=== PATIENT | male | born 1930 | race Caucasian/White ===

== ENCOUNTER → 2017-04-14 | Outpatient (CLI) | payer MEDICARE, BC ==
[~2017-04-14] MED LIST: APRESOLINE50 MG PO; ARICEPT10 M1 PO; B-COMPLEX PLUS1 EACH PO; CELEXA40 MG PO; CLOPIDOGREL75 MG PO; FISH OIL 1,0001 EACH PO; FLOMAX0.4 MG PO; FLONASE 50 MCG/16 GM NOSE; GLUCOTROL10 MG PO; HYTRIN UD5 MG PO; KLOR-CON 1010 MEQ PO; LIPITOR80 MG PO; LOPRESSOR50 MG PO; NITROGLYCERIN0.4 M1 TRANS; NOVOLOG FL100 UNIT/1 SUB-Q; PLAVIX75 MG PO; PRAVACHOL20 MG PO; PRESERVISION A1 EAC2 PO; PROSCAR5 MG PO; PROTONIX40 MG PO; PROVENTIL OR V6.7 GM INH; SPIRIVA HA30 CAP/INH INH; SYMBICORT 16010.2 GM INH; VITAMIN D-32000 UNI1 PO; ZYCLARA1 EACH TOP
== END | disposition disaster alternative care site (69) ==
LOC: GRAD 15:30
DX: N28.9 Disorder of kidney and ureter, unspecified (principal); N28.1 Cyst of kidney, acquired; N26.1 Atrophy of kidney (terminal)

== ENCOUNTER 2017-05-04 16:00 | Inpatient (IN) | payer MEDICARE, BC ==
[~2017-05-04] VITALS: Ht 172.7 cm; Wt 87.5 kg
--- NOTE | ~2017-05-04 | HP ---
PATIENT'S NAME: STEVIE PONCE [facility] AGE: 86 Y [address] ROOM: [address] [address] LOCATION: GPCU ADMIT DATE: 05/04/2017 History & Physical DISCHARGE DATE: FAMILY PHYSICIAN: PHYSICIAN, UNKNOWN ATTENDING PHYSICIAN: Fredrick Diaz DATE OF SERVICE: CHIEF COMPLAINT: Syncope. HISTORY OF PRESENTING ILLNESS: This 86-year-old white male with prior history of bladder cancer and multiple skin cancers as well as a previous history of stroke in the distant past. He was transferred to [facility] from [place] after a syncopal episode which occurred this morning. Apparently he had gotten up per his usual morning routine. He took his medications and ate breakfast. He rode with his to get coffee and when he tried to stand from the car, he got dizzy and collapsed. He did not actually fall and had his assisted him to the ground. He believes that he was unconscious for as much as 20 minutes. He "came to" en route to the hospital and relates that he felt a little groggy and confused for a short period of time. After his arrival in the hospital, he was feeling "okay." He was admitted for monitoring there and cardiac enzymes were trended. He had a bump in his troponin to 0.5. Dr. Diaz, Cardiology was consulted and it was requested that he be transferred here for definitive evaluation and management. He denies chest pain. He was significantly hypertensive at the point of his hospitalization there and received IV nitroglycerin for that. He does complain of some shortness of breath which has persisted. He denies fevers, chills, or sweats. No congestion or cough. Denies significant orthopnea. He has been eating and drinking normally as of late. He denies any difficulties with chewing or swallowing. No abdominal pain. No nausea. He has been stooling and voiding per his usual. He denies numbness, tingling, or weakness in the extremities but did have some dysesthesias over the right neck. PAST MEDICAL HISTORY: ALLERGIES: HYDROCODONE, NAPROXEN, AND ZOFRAN. ILLNESSES: 1. Bladder cancer status post TURBT. PATIENT'S NAME: STEVIE PONCE [facility] AGE: 86 Y [address] ROOM: [address] [place], [place] [address] LOCATION: [facility] ADMIT DATE: 05/04/2017 History & Physical DISCHARGE DATE: FAMILY PHYSICIAN: PHYSICIAN, UNKNOWN ATTENDING PHYSICIAN: Fredrick Diaz 2. Diabetes mellitus, type 2. 3. Essential hypertension. 4. Multiple skin cancers status post excisions. 5. BPH. 6. COPD. 7. Chronic diastolic congestive heart failure. 8. Chronic kidney disease, stage 3. 9. Osteoarthritis, generalized. CURRENT MEDICATIONS: 1. Citalopram 40 mg p.o. q. day. 2. Plavix 75 mg p.o. q. day. 3. Aricept 10 mg p.o. q. day. 4. Finasteride 5 mg p.o. q. day. 5. Fish oil 2000 mg p.o. t.i.d. 6. Flonase nasal spray 2 sprays each nostril daily. 7. Glipizide 20 mg p.o. b.i.d. 8. Hydralazine 50 mg p.o. t.i.d. 9. Imiquimod cream 5% applied topically daily. 10. Metoprolol 50 mg p.o. q. day. 11. Protonix 40 mg p.o. q. day. 12. NovoLog insulin 3 units subcutaneous b.i.d. with breakfast and lunch. 13. Potassium 10 mEq p.o. q. day. 14. Pravastatin 20 mg p.o. q. day. 15. PreserVision AREDS daily. 16. Proventil HFA 2 puffs p.o. q.i.d. p.r.n. 17. Spiriva 1 puff daily. 18. Symbicort 80/4.5, 1 puff b.i.d. 19. Flomax 0.4 mg p.o. q. day. 20. Terazosin 5 mg p.o. q. day. 21. Torsemide 20 mg p.o. q. day. 22. Vitamin D3, 2000 units p.o. q. day. FAMILY HISTORY: Significant for coronary artery disease in his father. Father also had diabetes. Mother had diabetes mellitus. He has a sister with colon cancer and a brother with throat cancer. SOCIAL HISTORY: He has a 90 pack-year history of smoking, but has been quit for more than 10 years. There is history of occasional alcohol use. REVIEW OF SYSTEMS: As per HPI. All other organ systems reviewed and are negative. PATIENT'S NAME: STEVIE PONCE [facility] AGE: 86 Y [address] ROOM: [address] [place], [place] [address] LOC[facility]: [facility] ADMIT DATE: 05/04/2017 History & Physical DISCHARGE DATE: FAMILY PHYSICIAN: PHYSICIAN, UNKNOWN ATTENDING PHYSICIAN: Fredrick Diaz PHYSICAL EXAMINATION: VITAL SIGNS: Temperature 97.3, pulse 96, respirations 20, blood pressure 169/90, and O2 saturation 91% on 2 L per nasal cannula. GENERAL: He is frail, anxious, but not ill-appearing, lying in the bed, in no acute distress. He is oriented x2 only. SKIN: Supple, pink, warm, and dry. There are some scars over the face consistent with his prior skin cancer excisions. No active lesions. HEENT: Otherwise, normocephalic. Sclerae nonicteric. Pupils equal and round, slow to react to light. Extraocular movements appear intact. Nasal turbinates normal in appearance. Oropharynx clear. Mucous membranes are pink and slightly dry. NECK: Supple. No masses. No thyromegaly. No JVD. No carotid bruits are heard. CHEST: Wall is symmetrical. Heart is regular with occasional extrasystoles. There is a grade 1/6 to 2/6 systolic ejection murmur. LUNGS: Diminished at the bases. No crackles or wheezes are heard. ABDOMEN: Soft, protuberant, nontender. Bowel sounds present. No mass or hepatosplenomegaly. GENITOURINARY: Not done. RECTAL: Not done. EXTREMITIES: Display trace pitting edema. No cyanosis. NEUROLOGIC: Mentation is little slowed. He is hard of hearing, but there are no focal deficits. Cranial nerves 2 through 12 appear grossly intact. Sensation appears normal. Strength is 4 to 5/5 bilaterally in upper and lower extremities. DTRs are 0 to 1+, roughly symmetrical. Gait is not observed. LABORATORY DATA AND IMAGING STUDIES: Laboratory and x-ray data from [place]: An EKG which is not present in the transfer packet reportedly shows a "bundle branch block." This is unchanged from previous. CBC showed a white blood cell count of 4.9, hemoglobin of 10.5, hematocrit of 34.6, and platelets are 151,000. Chemistries revealed BUN and creatinine of 34 and 2.6 respectively. Sodium and potassium of 141 and 3.9; chloride and CO2 of 103 and 26; calcium was 9.1; AST and ALT of 12 and 8 respectively. Bilirubin 0.6. Cardiac enzymes initially showed a CPK of 15, myoglobin 114, and troponin was 0.04. Second set drawn at 3 hours revealed CPK elevated at 148, myoglobin greater than 1200, and troponin I of 0.52. Chest x-ray showed vascular prominence with cardiac enlargement, but no pulmonary edema. ASSESSMENT AND PLAN: 1. Syncope. We will admit to inpatient care. Differential diagnosis includes cardiogenic cause versus cerebrovascular accident. He is currently hemodynamically stable. We will admit per the acute coronary syndrome pathway and trend his cardiac enzymes. We will follow up EKG now and await evaluation by Cardiology. Dr. Diaz is already aware of PATIENT'S NAME: STEVIE PONCE [facility] AGE: 86 Y [address] ROOM: [place] [address] [facility]: [facility] ADMIT DATE: 05/04/2017 History & Physical DISCHARGE DATE: FAMILY PHYSICIAN: PHYSICIAN, UNKNOWN ATTENDING PHYSICIAN: Fredrick Diaz the patient's arrival here and he is concurrently assessing him. 2. Acute hypoxic respiratory failure with history of chronic obstructive pulmonary disease. We will check echocardiogram. He appears to be relatively well volume compensated. 3. Accelerated hypertension. He is on nitroglycerin drip. Titrate to keep systolic blood pressures less than 160. 4. Diabetes mellitus, type 2. Historically controlled. We will manage with Accu-Cheks and sliding scale insulin while he is inpatient. 5. Chronic kidney disease, stage 3. It is unclear what his baseline creatinine is. We will manage his fluid volume balance carefully. We will monitor the creatinine trend. 6. Bladder cancer status post transurethral resection of bladder tumor, also stable. No evidence for active disease. Plan to continue clinical follow up. 7. Basal cell carcinoma of the face, multiple status post excisions as above. There is no evidence for active disease. He did have a previous lung wedge excision which was a benign granuloma. 8. Cerebrovascular accident by history with minimal residual effect. We will get CT scan of the head without contrast to further delineate. 9. Deep venous thrombosis prophylaxis. We will follow the venous thromboembolism protocol. MD IRVIN SMITH/chapincito /[id number] D: [id number] T: [id number] HISTORY & PHYSICAL
--- NOTE | ~2017-05-04 | CON ---
PATIENT'S NAME: STEVIE PONCE [facility] AGE: 86 Y [address] ROOM: [address] [place], [place] [address] LOCATION: GPCU ADMIT DATE: 05/05/2017 Consultation DISCHARGE DATE: FAMILY PHYSICIAN: Toni White MD ATTENDING PHYSICIAN: Fredrick Diaz DATE OF CONSULTATION: 05/05/2017 REFERRING PHYSICIAN: SAPPHIRE LOTT REQUESTING PHYSICIAN: Alyssa Arias M.D. REASON FOR CONSULTATION: Syncope/coronary artery disease. HISTORY OF PRESENT ILLNESS: The patient is an 86-year-old, white male from [place], [place], a patient of Dr. Diaz, who was transferred yesterday due to a syncopal episode that occurred in his home. This episode was associated with nausea and vomiting. The patient has had multiple occurrences of syncopal/near syncopal episodes over the last 2-3 months. Not all of these episodes resulted in a fall. The patient denies chest pain with any of the episodes. He does have some right- sided tingling to the side of his face, which has been occurring more frequently. He was ruled a non-STEMI based on his EKG and enzymes. He is placed on the ACS protocol. Dr. Arias took the patient to the cardiac catheterization lab where he was found to have severe proximal LAD occlusion of 90%, followed by 70% first diagonal, a proximal RCA occlusion of 99%, and an ostial 90% ramus intermedius. Given this, the patient was referred to Cardiothoracic surgery for discussion of surgical revascularization. PAST MEDICAL HISTORY: Illnesses: TIA, hypertension, dyslipidemia, diabetes mellitus type 2, hypoxia with home oxygen use, osteoarthritis, skin cancer, bladder cancer, GERD, dementia, history of CVA, COPD, diastolic congestive heart failure, chronic kidney disease stage 4, BPH, anxiety, and depression. Surgery/procedures: Inguinal hernia repair, bilateral cataract, a TURBT, a partial left lobectomy, excision of skin cancer to face and lips, multiple. ALLERGIES: HYDROCODONE, NAPROSYN, ZOFRAN, HOWEVER, THESE SOUND MORE LIKE INTOLERANCES THAN TRUE ALLERGIES. SOCIAL HISTORY: The patient is . He and his reside in [place], [place]. He has PATIENT'S NAME: STEVIE PONCE [facility] AGE: 86 Y [address] ROOM: [address] [place], [place] [address] [facility] ADMIT DATE: 05/05/2017 Consultation DISCHARGE DATE: FAMILY PHYSICIAN: Toni White MD ATTENDING PHYSICIAN: Fredrick Diaz children. He is retired from the [employer] department. He has a longstanding history of having smoked, at 1 time, he used to smoke 3 packs of cigarettes per day and had smoked for 30 years prior to quitting. He does not consume alcohol. FAMILY HISTORY: His father has a history of having coronary artery disease and diabetes. His mother had a history of having coronary artery disease and diabetes. His siblings have had history with cancer with 2 sisters having colon cancer and a brother with throat cancer. HOME MEDICATIONS: Are as follows: 1. Albuterol 1 puff per inhalation q.6 hours p.r.n. shortness of breath. 2. Symbicort 160/4.5, 2 puffs per inhalation b.i.d. 3. Vitamin D3 2000 international units daily. 4. Celexa 20 mg a day. 5. Plavix 75 mg at bedtime. 6. Aricept 10 mg at bedtime. 7. Proscar 5 mg daily. 8. Flonase one puff per nares daily. 9. Glucotrol 20 mg b.i.d. 10. Apresoline 50 mg t.i.d. 11. Imiquimod topically daily to affected skin cancer lesions. 12. NovoLog 3 units subcu b.i.d. 13. Lopressor 25 mg daily in the morning and Lopressor 50 mg at bedtime. 14. Fish oil 2000 mg t.i.d. 15. Protonix 40 mg daily. 16. Potassium chloride 10 mEq daily. 17. Pravachol 10 mg at bedtime. 18. Flomax 0.4 mg at bedtime. 19. Hytrin 5 mg a day. 20. Spiriva 1 capsule per inhalation daily. 21. PreserVision one tablet b.i.d. REVIEW OF SYSTEMS: GENERAL: No change in weight or appetite. No fever, chills, or sweats. HEENT: He has poor vision, mostly age-related with some macular degeneration and left eye blindness. He is hard of hearing. He does suffer from seasonal allergies. No trouble swallowing. RESPIRATORY: He is short of breath as well as dyspneic on exertion. CARDIOVASCULAR: He has not had any chest pain, chest pressure, or palpitations. No history of murmurs. No complaints of intermittent claudication, some occasional lower extremity edema. GI: Does have a history with GERD for which he takes medication. No PATIENT'S NAME: STEVIE PONCE [facility] AGE: 86 Y [address] ROOM: [address] [place] [id number] LOCATION: GPCU ADMIT DATE: 05/05/2017 Consultation DISCHARGE DATE: FAMILY PHYSICIAN: Toni White MD ATTENDING PHYSICIAN: Fredrick Diaz persistent nausea, vomiting, constipation, or diarrhea. No blood in the stools or black tarry stools. : He does have a history of bladder cancer. Does take medications for BPH. MUSCULOSKELETAL: Generalized arthritic aches and pains. Does not reportedly use any assistive devices to get around. NEUROLOGIC: No complaints of headaches. No history of seizures. He does have some dementia. He does have some tingling on the right side of his face which may be related to his past stroke, it is unclear. PSYCHIATRIC: He does have a history with depression and anxiety. ENDOCRINE: Does have diabetes for which he uses oral and insulin products. No diagnosed thyroid conditions. INTEGUMENT: He has had multiple skin cancer lesions, most of these to the face, especially on the right side and on the lips. PHYSICAL EXAMINATION: VITAL SIGNS: Blood pressure 147/77, pulse 64, respirations 16, temperature is 97.8, O2 saturation is 94% on 2 L. His height is a 173 cm. His weight is 87.5 kg. GENERAL: He is a very gregarious, energetic sounding man, who speaks as if he is not as sick as he is. He is currently in no acute distress. He has not had any episodes of chest pain. HEENT: Normocephalic. EOMI's intact. The patient appears his stated age. LUNGS: Clear to diminished throughout. CARDIOVASCULAR: Irregular at times. No murmur detected. ABDOMEN: Obese, soft, nontender by 4 quadrants with positive bowel sounds throughout. EXTREMITIES: There is some mild edema bilaterally to the feet and ankles. NEUROLOGIC: Alert and oriented. Strength is symmetrical. SKIN: There are some scars on his face from his excisions from the skin cancer. LABORATORY DATA AND TEST RESULTS: His cardiac catheterization is as per HPI. BMP: Sodium 141, potassium 4.7, glucose 129, BUN 35, creatinine 2.7, GFR is 21. CBC: White blood cell count 6.7, hemoglobin 9.3, hematocrit 29.4, platelets 131. His INR is 1.05. Hemoglobin A1c is 6.9. IMPRESSION: 1. Non-ST segment myocardial infarction. He is on the ACS protocol. He has not had any chest pain. 2. Coronary artery disease. This is requiring surgical revascularization. 3. Diabetes mellitus, type 2, being followed by hospitalist services. 4. Chronic kidney disease, stage 4. His baseline creatinine is at 2.7 to 2.9. He is following with Nephrology. 5. Hypoxia, requiring oxygen therapy. PATIENT'S NAME: STEVIE PONCE [facility] AGE: 86 Y [address] ROOM: [place] [address] LOCATION: GPCU ADMIT DATE: 05/05/2017 Consultation DISCHARGE DATE: FAMILY PHYSICIAN: Toni White MD ATTENDING PHYSICIAN: Fredrick Diaz 6. Syncopal episodes, multiple in the last 2-[address] scan was performed to rule out neurologic causes. RECOMMENDATION/PLAN: Dr. Mehta spoke to the patient with regard to surgical revascularization. Risks and benefits of the procedure were discussed. Discussion of the risks includes, but were not limited to, bleeding requiring transfusion or return to the operative suite, myocardial infarction, cerebrovascular accident, renal and/or pulmonary failure. Also discussed were arrhythmias and infection as well as operative and postoperative mortality. Dr. Mehta did speak with Dr. 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 The patient's EF was found normal. He will need a bypass x3, this to the PDA, the LAD, and ramus. LENGTH OF STAY: Probable [facility] facility placement was discussed. Restrictions thereafter were discussed. The patient does consent to the surgery. We will plan for May 07, 2017. I would like to thank Dr. Arias and Dr. Diaz for allowing us to participate in the care of this very pleasant gentleman. JESSY CAROLINA APRN FOR DO ZAKIYA TADEO/modl /[id number] d: 05/06/17 1532 t: 05/10/17 2301, CONSULTATION REPORT
--- NOTE | ~2017-05-04 | CATH ---
Cardiac Diagnostic Report Demographics Patient Name ROSARIO Anderson Gender Male Date of 1930 Age 86 year(s) Patient Number [id number] Date of Study 05/05/2017 Visit Number [id number] Room Number [address] [place] [id number] Ht 172.72 cm Wt 87.09 kg Referring Emily Alcala MD Primary Physician Physician Performing [place] Secondary Physician Physician Alyssa HUDSON Diagnostic [place] Assisting Physician Physician Alyssa HUDSON Interventional Physician Oil Recovery Unit Operator Physician Findings and Conclusions Diagnostic Findings and Conclusion A severe Ostial LAD, RI and Proximal RCA Disease Calcification involving proximal coronaries Diagnostic Recommendations Recommend CABG consult Procedure Description The patient was brought to the diagnostic cardiac catheterization-EP laboratory in the fasting, non-sedated state. Informed consent was obtained in the written and verbal form after the risks and benefits were explained. The patient had no further questions and agreed to proceed. The planned puncture-incision site(s) were shaved and prepped with ChloraPrep and draped in the usual sterile manner. Conscious sedation, supplemental oxygen, and pain control medications were delivered by a registered nurse under physician guidance. Surface ECG rhythm, blood pressure measurement, and pulse oximetry were monitored throughout the procedure. Arterial access. The access site was infiltrated with lidocaine. The vessel was entered with the Seldinger technique. A sheath was advanced into the vessel and used for catheter placement. Selective left coronary angiography. A catheter was advanced into the left coronary vessel ostium under Fluoroscopic guidance. Contrast was injected by hand. Images were obtained in multiple projections. Selective right coronary angiography. A catheter was advanced into the right coronary vessel ostium under fluoroscopic guidance. Contrast was injected by hand. Images were obtained in multiple projections. Arterial artery hemostasis was achieved. The patient was transferred to a regular nursing floor via cart accompanied by a nurse. The patient left the laboratory in stable condition. Diagnostic Cath Status: Urgent Procedure Procedure Type Diagnostic procedure:Angiography:, Coronary Angios Indications: Elevated cardiac enzymes. The procedure was explained in detail to the patient. Risks, complications and alternative treatments were reviewed. Written consent was obtained. Medications Reviewed with Patient prior to Procedure. Angiographic Findings Dominance: Right Cardiac Arteries and Lesion Findings LMCA: Lesion on LMCA: Distal subsection.20% stenosis . LAD: Moderate diffuse Disease Type 3 Lesion on Prox LAD: Ostial.90% stenosis . Lesion on 1st Diag: Ostial.70% stenosis . LCx: Moderate Diffuse Disease RCA: dominate with irregularities Lesion on Prox RCA: Proximal subsection.99% stenosis . Lesion on Dist RCA: Distal subsection.25% stenosis . Ramus: Lesion on Ramus: Ostial.90% stenosis . Coronary Tree Procedure Data Procedure Date Date: 05/05/2017Start: 02:52 PMEnd: 03:33 PM Entry Locations - Retrograde Percutaneous access was performed through the Right Femoral artery (Primary location). A 7 Fr sheath was inserted. Hemostasis was successfully obtained using Perclose ProGlide ([place]). Closure Comments: deployed by Rob. Procedure Medications Order and Administration + + +-------+------+ !Time !Medication !Dosage !Route ! + + +-------+------+ !05/05/2017 02:52 PM !Versed !0.5 mg !I.V. ! + + +-------+------+ !05/05/2017 02:56 PM !Fentanyl !25 mcg !I.V. ! + + +-------+------+ Devices Used - A6 Fr. BS JR 4 Diag. Catheterwas used for:Right coronary angiography. - A6 Fr. BS JL 4 Diag. Catheterwas used for:Left coronary angiography. Contrast Material - Isovue 46062 ml Fluoroscopy Time: Diagnostic: 4:36 minutes. Total: 4:36 minutes. Fluoroscopy Dose: Diagnostic: 947 mGy. Total: 947 mGy. Estimated Blood Loss: 20 ml. Medical History Allergies - Other:(naproxen, odensetron, hydrocodone). Risk Factors The patient risk factors include:cerebrovascular disease, hypertension, insulin-treated diabetes mellitus, chronic lung disease, last creatinine: 2.7 mg/dl, creatinine clearance: 24.64 ml/min, former tobacco use and prior heart failure . Admission Data Admission Date: 05/05/2017 Admission Time: 07:44 AM Admit Source: Other Insurance Payors: Medicare. Admission Medications + +------+------+ + + + + !Medication !Dosage!Times !Last !Last !Administered !Comments ! ! ! !Per !Delivery !Delivery ! ! ! ! ! !Day !Date !Time ! ! ! + +------+------+ + + + + !Non-Statin ! ! ! ! !Yes ! ! !(any) ! ! ! ! ! ! ! + +------+------+ + + + + !Statin ! ! ! ! !Yes ! ! !(any) ! ! ! ! ! ! ! + +------+------+ + + + + !Beta ! ! ! ! !Yes ! ! !Ace ! ! ! ! ! ! ! !(any) ! ! ! ! ! ! ! + +------+------+ + + + + Clinical Evaluation Leading to Procedure - The patient's CAD presentation was assessed as: Non-STEMI. - The patient's anginal syndrome during the past two weeks was assessed as: Class IV according to the [place] Cardiovascular Society Classification System (CCS). Anti-anginal medications were prescribed during the past two weeks. The medication is: Beta Blockers. Hemodynamics Condition: Rest O2 Consumption: Estimated: 231.18Heart Rate: 74 bpm Pressures (mmHg) +-----+ + !Site !Pressure ! +-----+ + !AO !171/84 (119) ! +-----+ + Shunts Oxygen Values O2 Capacity 129.2 O2 Consumption 231.18 Signatures dtt: Alyssa Arias dttj: 05/05/17 1452 Physician Self Edit
--- NOTE | ~2017-05-04 | ECHO ---
Transthoracic Echocardiography Report (TTE) Demographics Patient Name STEVIE PONCE Date of Study 05/05/2017 C Patient Number [id number] Visit Number [id number] Date of 1930 Room Number G6333 Gender Male Number Age 86 year(s) Referring Coroner Hector RVT, RDCS Physician Shirley Physician Interpreting Emily Alcala MD Direct Marketing Manager Physician Supervising Ordering Vicki Parker MD, MD/MLP Physician Nurse Stress Tank Shop Supervisor Conclusions Summary The estimated left ventricular ejection fraction is 50%. Mild to moderate concentric left ventricular hypertrophy. Diastolic assessment reveals Grade I diastolic dysfunction. The left atrium is moderately dilated. Moderate mitral regurgitation by color Doppler. Mild-moderate tricuspid regurgitation by color Doppler. There is moderate pulmonary hypertension. The pulmonary pressure (RVSP) is 47 mmHg. Procedure Type of Study TTE procedure:2D Echocardiogram, M-Mode, Doppler , Color Doppler. Procedure Date Date: 05/05/2017 Start: 09:01 AM Study Location: Inpatient Portable Technical Quality: Adequate visualization Indications:Syncope. Appropriate Use Criteria: 9 Patient Status: Routine HR: 75 bpm BP: 170/79 mmHg Allergies - Other:(naproxen, odensetron, hydrocodone). M-Mode/2D Measurements LV Diastolic Dimension: 4.68 cm LV Systolic Dimension: 3.26 cm LV Septum Diastolic: 1.52 cm LV PW Diastolic: 1.64 cm AO Root Dimension: 2.6 cm Cardiac Output: 3.74 l/min AV Cusp Separation: 1.3 cm RV Diastolic Dimension: 2.97 cm LA volume: 38 ml LVOT: 1.9 cm RV Base: 2.47 cm LVOT VTI: 17.6 cm RV Mid: 2.38 cm LV Stroke volume: 49.88 ml TAPSE: 2.2 cm TDI-S': 11.6 cm/s Doppler Measurements AV Peak Velocity: 1.23 m/s MV Peak E-Wave: 0.8 m/s AV Peak Gradient: 6.05 mmHg MV Peak A-Wave: 1.02 m/s AV Mean Gradient: 4 mmHg MV E/A Ratio: 0.78 LVOT Peak Velocity: 0.77 m/s MV P1/2t: 35 msec TR Gradient:44.09 mmHg PV Peak Velocity: 0.78 m/s Estimated RAP:3 mmHg PV Peak Gradient: 2.43 mmHg Estimated RVSP: 47 mmHg Estimated PASP: 47.09 mmHg E' Septal Velocity: 0.03 m/s A' Septal Velocity: 0.08 m/s E' Lateral Velocity: 0.04 m/s A' Lateral Velocity: 0.07 m/s Findings Left Ventricle Mild to moderate concentric left ventricular hypertrophy. Diastolic assessment reveals Grade I diastolic dysfunction. Right Ventricle Normal right ventricle structure and function. Left Atrium The left atrium is mildly dilated. Right Atrium Normal right atrial size. Mitral Valve Moderate mitral regurgitation by color Doppler. Aortic Valve The aortic valve is moderately sclerotic. Tricuspid Valve Moderate tricuspid regurgitation by color Doppler. There is moderate pulmonary hypertension. The pulmonary pressure (RVSP) is 47 mmHg. Pulmonic Valve Mild pulmonic valve regurgitation by color Doppler. Pericardial Effusion No evidence of pericardial effusion. Pleural Effusion No evidence of pleural effusion. Signature dtt: Fredrick Diaz (cardio) dtd: 05/05/17 0901 Physician Self Edit
--- NOTE | ~2017-05-04 | CON ---
PATIENT'S NAME: STEVIE PONCE [facility] AGE: 86 Y [address] ROOM: [place] [address] LOCATION: GPCU ADMIT DATE: 05/05/2017 Consultation DISCHARGE DATE: FAMILY PHYSICIAN: Toni White MD ATTENDING PHYSICIAN: Fredrick Diaz DATE OF CONSULTATION: 05/05/2017 REFERRING PHYSICIAN: SAPPHIRE LOTT This is a [facility] Nephrology consultation. REASON FOR CONSULTATION: CKD stage 4, need for left heart catheterization with exposure to contrast. HISTORY OF PRESENT ILLNESS: This is an 86-year-old male patient with a longstanding history of hypertension, diabetes mellitus, CKD stage 3 to 4 with a baseline creatinine of 2.4 to 2.9. The patient was admitted with a rli-WT-yqczmpopj DC and creatinine was found to be 2.6 to 2.7. Urine output has remained reasonable. Per the record, the patient was transferred to [facility] from [facility] after having a syncopal episode that occurred yesterday morning. Due to the patient's history of CKD stage 4 with baseline creatinine of 2.4 to 2.9 with impending left heart catheterization, Nephrology has been asked to consult on the patient. PAST MEDICAL HISTORY: As listed above includin. Zoo-FV-gykozcruv DC. 2. Bladder cancer. 3. Multiple skin cancers. 4. History of CVA. 5. Diabetes mellitus type 2. 6. Essential hypertension. 7. BPH. 8. COPD. 9. Chronic diastolic congestive heart failure. 10. CKD stage 4. 11. Osteoarthritis. ALLERGIES: HYDROCODONE, NAPROXEN, AND ZOFRAN. PAST SURGICAL HISTORY: TURP FAMILY HISTORY: Reviewed and is noncontributory. There is no history of renal disease or dialysis. The patient's father did have coronary artery disease as well as diabetes. His mother also has diabetes. Sister had colon cancer. Brother with throat cancer. SOCIAL HISTORY: The patient does have a 90-htyh-yczv history of smoking. He quit for more than 10 years. There is a history of occasional alcohol use. No illicit drug use.PATIENT'S NAME: STEVIE PONCE [facility] AGE: 86 Y [address] ROOM: [place] [id number] [facility] ADMIT DATE: 05/05/2017 Consultation DISCHARGE DATE: FAMILY PHYSICIAN: Toni White MD ATTENDING PHYSICIAN: Fredrick Diaz MEDICATIONS: Current home medications include: 1. Citalopram 40 mg daily. 2. Plavix 75 mg daily. 3. Aricept 10 mg daily. 4. Finasteride 5 mg daily. 5. Fish oil 2000 mg 3 times a day. 6. Flonase 2 nasal sprays daily. 7. Glipizide 20 mg twice a day. 8. Hydralazine 50 mg 3 times a day. 9. Imiquimod cream 5% topically daily. 10. Metoprolol 50 mg daily. 11. Protonix 40 mg daily. 12. NovoLog 3 units subcutaneously b.i.d. with breakfast and lunch. 13. Potassium 10 mEq daily. 14. Pravastatin 20 mg daily. 15. PreserVision daily. 16. Proventil HFA 2 puffs p.o. q.i.d. p.r.n. 17. Spiriva 1 puff daily. 18. Symbicort 80/4.5 one puff b.i.d. 19. Flomax 0.4 mg daily. 20. Terazosin 5 mg daily. 21. Torsemide 20 mg daily. 22. Vitamin D3, 2000 units p.o. daily. REVIEW OF SYSTEMS: GENERAL: Denies any new fever, chills, or night sweats. HEENT: Eyes: No double vision or blurred vision. Nose: No epistaxis or rhinorrhea. Mouth: No gingival bleeding. Throat: No sore throat, hoarseness, or cough. RESPIRATORY: Denies wheezing or hemoptysis. CARDIOVASCULAR: Positive for syncope. Positive for dizziness. Positive for quu-HG-ewuppqpok DC. See HPI. GASTROINTESTINAL: Denies any new nausea or vomiting. GENITOURINARY: Denies any urinary complaints. MUSCULOSKELETAL: Denies any arthralgias or myalgias. NEUROLOGIC: Positive for dizziness with episode prior to his arrival. HEMATOLOGIC: No bruising or easy bleeding. IMMUNOLOGIC: No recent infections. LABORATORY DATA: Hemoglobin 9.3, hematocrit 29.4, WBC 6.7, and platelets 131. Sodium 141, potassium 4.7, chloride 106, CO2 of 28, BUN 35, creatinine 2.7, glucose 129, INR 1.05, troponin initially was 27.5 and has come down to 11.4, and calcium 8.2.PATIENT'S NAME: STEVIE PONCE [facility] AGE: 86 Y [address] ROOM: G6[address] [place], [place] [address] LOCATION: GPCU ADMIT DATE: 05/05/2017 Consultation DISCHARGE DATE: FAMILY PHYSICIAN: Toni White MD ATTENDING PHYSICIAN: Fredrick Diaz PHYSICAL EXAMINATION: VITAL SIGNS: Blood pressure 136/82, pulse 70, respirations 16, temperature 98.8, and saturations are 96% on 2 L nasal cannula. GENERAL: On exam, this is a frail, elderly, white male, who appears his approximate stated age, is in no acute distress. He is oriented x2. HEENT: Head: Normocephalic. Eyes: Pupils are equal, round, and reactive to light and accommodation. EOMs are intact. Nose: Midline. Mouth: No gingival bleeding. NECK: Soft and supple. Throat is without lymphadenopathy or carotid bruits. No JVD. LUNGS: Lung sounds are clear to auscultation anteriorly and posteriorly. The patient is on 2 L nasal cannula. CARDIOVASCULAR: Regular rate and rhythm with grade 1 to 2/6 systolic ejection murmur heard best at the base of the heart. ABDOMEN: Soft, nontender, and nondistended. Bowel sounds positive. EXTREMITIES: Show trace lower extremity edema bilaterally. NEUROLOGIC: Cranial nerves II through XII are grossly intact. Mentation is slightly slowed. The patient is also hard of hearing. ASSESSMENT AND PLAN: 1. Chronic kidney disease stage 4. The patient's creatinine is stable at this time. The patient does need a left heart catheterization due to the presence of a roa-RN-nkqqomzbb myocardial infarction with significant elevation of the troponin. We will pretreat the patient with IV fluid as well as Mucomyst in hopes of preventing a contrast induced nephropathy. We did discuss with the patient the risk of proceeding with left heart catheterization and the possible need for hemodialysis following. At this time, the patient would like to pursue with heart catheterization. In the interim, we will pretreat the kidneys with IV fluid at a rate of 80 mL an hour x6 hours prior to the procedure and continue the IV fluids 6 hours after the procedure. He will receive 1200 mg of Mucomyst twice a day x4 doses. We will also dose him with a high dose statin, Lipitor 80 mg p.o. x1. 2. Uao-CC-wnpsduuck myocardial infarction. The patient is planning for left heart catheterization later this afternoon. Further recommendations will be forthcoming. 3. Hypertension. Blood pressures are stable currently. Continue current medications. 4. Hyperlipidemia. As above. Continue statin. This patient has been seen and assessed by Dr. Lott. His care is being conducted in consultation with Dr. Lott as well as me. We will plan further recommendations as they are forthcoming. AMILCAR ARIZMENDI DNP, BUILDING PRESSURE WASHER FOR [facility] MD IBIS MALLORY/chapincito /[id number] d: 05/06/17 0011 t: 05/22/17 0931, CONSULTATION REPORT
--- NOTE | ~2017-05-04 | ENPV ---
Carotid Duplex Study Demographics Patient Name STEVIE PONCE Date of Study 05/06/2017 Patient Number [id number] Gender Male Date of 1930 Age 86 Visit Number [id number] Height 68 Weight 192 Number Referring Christopher Schaefer MD Interpreting Jeb Godinez MD Physician Physician Physician Ordering Janine Anderson Rate Inserter Physician DO Dimpling Machine Operator Hector T, [facility] Conclusions Summary The right internal carotid artery has mild, 1-39%, plaque and stenosis. The left internal carotid artery has mild, 1-39%, plaque and stenosis. The bilateral vertebral arteries are patent and antegrade. The bilateral subclavian arteries are patent and biphasic. Procedure Type of Study: Cerebral:Carotid, Carotid Doppler Bilateral. Indications for Study:Pre-op CABG. Appropriate Use Criteria:7 Allergies - Other:(naproxen, odensetron, hydrocodone). Blood Pressure:Right arm 155/101 mmHg.Left arm 158/86 mmHg. Patient Status:Routine. Study Location:Imaging Center. Technical Quality:Adequate visualization. Risk Factors - The patient's risk factor(s) include: chronic lung disease, insulin-treated diabetes mellitus and arterial hypertension. - The patient has a former tobacco history. - The patient's last creatinine was 2.7 mg/dl. Velocities are measured in cm/s ; Diameters are measured in cm Carotid Right Measurements Carotid Left Measurements + +--------+--------+ + + + +--------+ --------+ + + !Location !PSV !EDV !Angle !%Stenosis ! !Location !PSV ! EDV !Angle !%Stenosis ! + +--------+--------+ + + + +--------+ --------+ + + !Prox CCA !105 !36 !50 ! ! !Prox CCA !110 ! 30 !60 ! ! + +--------+--------+ + + + +--------+ --------+ + + !Dist CCA !88 !27 !58 ! ! !Dist CCA !82 ! 26 !60 ! ! + +--------+--------+ + + + +--------+ --------+ + + !Prox ICA !94 !25 !60 ! ! !Prox ICA !92 ! 21 !54 ! ! + +--------+--------+ + + + +--------+ --------+ + + !Dist ICA !114 !41 !60 ! ! !Dist ICA !70 ! 34 !44 ! ! + +--------+--------+ + + + +--------+ --------+ + + !Prox ECA !93 ! !60 ! ! !Prox ECA !97 ! !46 ! ! + +--------+--------+ + + + +--------+ --------+ + + !Vertebral !56 ! !60 ! ! !Subclavian !82 ! !60 ! ! + +--------+--------+ + + + +--------+ --------+ + + !Subclavian !132 ! !46 ! ! + +--------+--------+ + + - Add'l Measurements:ICAPSV/CCAPSV 1.09.ICAEDV/CCAEDV 1.15. - Add'l Measurements:ICAPS V/CCAPSV 0.84.ICAEDV/CCAEDV 1.13. Signature dtt: ERVIN HOLLAND: 05/06/17 0734 Physician Self Edit
--- NOTE | ~2017-05-04 | ENPV ---
Vascular Lower Extremity Vein Mapping and Lower Extremities DVT Study Procedure Demographics Patient Name STEVIE PONCE Date of Study 05/06/2017 Patient Number [id number] Gender Male Date of 1930 Age 86 Visit Number [id number] Height 68 Weight 192 Number Referring Christopher Schaefer MD Interpreting Jeb Godinez MD Physician Physician Physician Ordering Janine Anderson Slinger Sequins Physician DO Senior Copywriter Hector T, [facility] Shirley Conclusions Summary No evidence of deep vein thrombosis or superficial thrombophlebitis in the lower extremities bilaterally. The great saphenous vein bilaterally was mapped and appears adequate for surgical use. Procedure Type of Study: Veins:Lower Extremity Vein Mapping, Vein Map Bilat STACI, Lower Extremities DVT Study, Venous Duplex Lower Extremity Bilateral. Indications for Study:Pre-op CABG. Allergies - Other:(naproxen, odensetron, hydrocodone). Patient Status:Routine. Study Location:Inpatient Portable. Technical Quality:Adequate visualization. Risk Factors - The patient's risk factor(s) include: chronic lung disease, insulin-treated diabetes mellitus and arterial hypertension. - The patient has a former tobacco history. - The patient's last creatinine was 2.7 mg/dl. Velocities are measured in cm/s ; Diameters are measured in cm Right Lower Extremities DVT Study Measurements Right 2D and Doppler Measurements + + + + +------+------+ + !Location !Visualized!Compressibility!Thrombosis!Signal!Reflux!Reflux ! ! ! ! ! ! ! !(sec) ! + + + + +------+------+ + !GSV Thigh !Yes !Yes !None !Phasic! ! ! + + + + +------+------+ + !Common !Yes !Yes !None !Phasic! ! ! !Femoral ! ! ! ! ! ! ! + + + + +------+------+ + !Prox !Yes !Yes !None !Phasic! ! ! !Femoral ! ! ! ! ! ! ! + + + + +------+------+ + !Mid Femoral!Yes !Yes !None ! ! ! ! + + + + +------+------+ + !Dist !Yes !Yes !None !Phasic! ! ! !Femoral ! ! ! ! ! ! ! + + + + +------+------+ + !Popliteal !Yes !Yes !None !Phasic! ! ! + + + + +------+------+ + !Gastroc !Yes !Yes !None ! ! ! ! + + + + +------+------+ + !PTV !Yes !Yes !None ! ! ! ! + + + + +------+------+ + !Peroneal !Yes !Yes !None ! ! ! ! + + + + +------+------+ + Left Lower Extremities DVT Study Measurements Left 2D and Doppler Measurements + + + + +------+------+ + !Location !Visualized!Compressibility!Thrombosis!Signal!Reflux!Reflux ! ! ! ! ! ! ! !(sec) ! + + + + +------+------+ + !GSV Thigh !Yes !Yes !None !Phasic! ! ! + + + + +------+------+ + !Common !Yes !Yes !None !Phasic! ! ! !Femoral ! ! ! ! ! ! ! + + + + +------+------+ + !Prox !Yes !Yes !None !Phasic! ! ! !Femoral ! ! ! ! ! ! ! + + + + +------+------+ + !Mid Femoral!Yes !Yes !None ! ! ! ! + + + + +------+------+ + !Dist !Yes !Yes !None ! ! ! ! !Femoral ! ! ! ! ! ! ! + + + + +------+------+ + !Popliteal !Yes !Yes !None !Phasic! ! ! + + + + +------+------+ + !Gastroc !Yes !Yes !None ! ! ! ! + + + + +------+------+ + !PTV !Yes !Yes !None ! ! ! ! + + + + +------+------+ + !Peroneal !Yes !Yes !None ! ! ! ! + + + + +------+------+ + Velocities are measured in cm/s ; Diameters are measured in cm + ++--------++--------+ !Superficial - Great Saphenous Vein !!Right !!Left ! + ++--------++--------+ !Location !!Diameter!!Diameter! + ++--------++--------+ !Sapheno Femoral Junction !!0.45 !!0.46 ! + ++--------++--------+ !GSV High Thigh !!0.51 !!0.3 ! + ++--------++--------+ !GSV Mid Thigh !!0.42 !!0.25 ! + ++--------++--------+ !GSV Low Thigh !!0.31 !!0.26 ! + ++--------++--------+ !GSV Knee !!0.38 !!0.26 ! + ++--------++--------+ !GSV High Calf !!0.3 !!0.25 ! + ++--------++--------+ !GSV Mid Calf !!0.15 !!0.25 ! + ++--------++--------+ !GSV Low Calf !!0.39 !!0.27 ! + ++--------++--------+ Signature dtt: ERVIN HOLLAND: 05/06/17 0802 Physician Self Edit
--- NOTE | ~2017-05-04 | CON ---
PATIENT'S NAME: STEVIE PONCE [facility] AGE: 86 Y [address] ROOM: [place] [address] LOCATION: GPCU ADMIT DATE: 05/05/2017 Consultation DISCHARGE DATE: FAMILY PHYSICIAN: Toni White MD ATTENDING PHYSICIAN: Fredrick Harmon REFERRING PHYSICIAN: SAPPHIRE ELENA REFERRING PHYSICIAN: Bud Cohen MD. REASON FOR CONSULTATION: Elevated cardiac enzymes. HISTORY OF PRESENT ILLNESS: This is an 86-year-old gentleman who was admitted from [facility] after a syncopal episode. He was in his usual state of health when he got up and took his medications and ate breakfast. He and his who rode to go get cough and when he was trying to get out of the car and stand up, he felt dizzy and collapsed and was unconscious. He does not recall waking up until he was in the hospital. He did not fall causing any injury as his assisted him to the ground. After arousal, he was a little bit confused and groggy, but then grogginess cleared. During his evaluation in [facility], he was found to have elevated cardiac enzymes and was transferred to [facility]. He was also quite hypertensive as well. He denies feeling any palpitations or lightheadedness or dizziness prior to the episode. There was no report of exertional chest pain. Once again, his troponin I was elevated and the 2nd set was also elevated. There is no history of coronary artery disease in his past. He denies prior history of chest pain, orthopnea, or PND, but did have some dyspnea on exertion. PAST MEDICAL HISTORY: 1. Bladder cancer post TURBT and chemotherapy. 2. Multiple skin cancer with resection. 3. CVA in 2003. 4. Diabetes mellitus type 2. 5. Hypertension. 6. BPH. 7. COPD. 8. Diastolic heart failure. 9. Chronic kidney disease. 10. Osteoarthritis. 11. Renal calculi. 12. 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 14. Essential hypertension. 15. 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 PATIENT'S NAME: STEVIE PONCE [facility] AGE: 86 Y [address] ROOM: [place] [id number] [facility] ADMIT DATE: 05/05/2017 Consultation DISCHARGE DATE: FAMILY PHYSICIAN: Toni White MD ATTENDING PHYSICIAN: Fredrick Harmon 16. Gastroesophageal reflux disease. 17. Paroxysmal atrial fibrillation noted after a pulmonary wedge resection in 2012. PAST SURGICAL HISTORY: 1. Inguinal hernia repair. 2. Bilateral cataract surgery with laser to the left eye. 3. TURBT for bladder tumor. 4. 10/13/2012, wedge resection of the left lower lip with W-plasty reconstruction and bilateral supraomohyoid modified radical neck dissection with Dr. 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 01/16/2005, right temporal excision of basal cell carcinoma with cheek flap closure. 07/03/2005, right temporal basal cell carcinoma and periauricular excision. 02/02/2006, excision of a basal cell carcinoma. Right temporal area with split-thickness skin grafting. 03/02/2007, excision of the right temporal basal cell carcinoma with right lateral brow excision and left ear excision. ALLERGIES: VICODIN. HOME MEDICATIONS: 1. Citalopram 40 mg every day. 2. Plavix 75 mg daily. 3. Aricept 10 mg daily. 4. Finasteride 5 mg daily. 5. Fish oil 2000 mg t.i.d. 6. Flonase nasal spray 2 sprays every day. 7. Glipizide 20 mg b.i.d. 8. Hydralazine 50 mg t.i.d. 9. Imiquimod cream 5% daily. 10. Metoprolol 50 mg p.o. daily. 11. Protonix 40 mg p.o. daily. 12. NovoLog 3 units subcutaneous b.i.d. with breakfast and lunch. 13. KCL 10 mEq breakfast and lunch. 14. Pravastatin 20 mg every day. 15. PreserVision daily. 16. Proventil 2 puffs q.i.d. p.r.n. 17. Spiriva 1 puff daily. 18. Symbicort 80/4.5, 1 puff b.i.d. 19. Flomax 0.4 mg daily. PATIENT'S NAME: STEVIE PONCE [facility] AGE: 86 Y [address] ROOM: [address] [place], [place] [address] [facility] ADMIT DATE: 05/05/2017 Consultation DISCHARGE DATE: FAMILY PHYSICIAN: Toni White MD ATTENDING PHYSICIAN: Fredrick Harmon 20. Terazosin 5 mg daily. 21. Torsemide 20 mg daily. 22. Vitamin D3, 2000 units every day. FAMILY HISTORY: He is . Two sisters had colon cancer. Half-brother had throat cancer. They are all . Father , he had coronary artery disease and diabetes mellitus. Mother is also . She had diabetes mellitus and CVA. SOCIAL HISTORY: He does have a 3-pack a day for 30 years. History of tobacco use, he quit in 1969. REVIEW OF SYSTEMS: GENERAL: He has been a little more fatigued. HEAD: No history of headache. EYES: He is blind in his left eye and has macular degeneration. EARS: He is hard of hearing. NOSE: No epistaxis or rhinorrhea. MOUTH: No gingival bleeding. THROAT: Denies sore throat, hoarseness, or difficulty swallowing. PULMONARY: As per HPI. GI: Negative for nausea, vomiting, or diarrhea. GENITOURINARY: Positive for urinary frequency. He has nocturia 2 to 3 times at night. MUSCULOSKELETAL: He has generalized osteoarthritis. NEUROLOGIC: He has been having a little balance problems lately, but does not use a walker. PSYCHIATRIC: No history of depression at this time. ENDOCRINE: He is diabetic and on replacement therapy. PHYSICAL EXAMINATION: GENERAL: He is alert, very pleasant male, who appears to be in no acute distress. SKIN: Warm, dry, and pink. HEENT: Pupils equal, round, and react briskly. LUNGS: Sounds are clear to auscultation anteriorly and posteriorly. CV: Regular with normal S1, S2. ABDOMEN: Soft. Bowel sounds are present. EXTREMITIES: Show no peripheral edema. ASSESSMENT: 1. Syncope. We will continue to monitor on telemetry. So far, there have been no arrhythmic events. We will check orthostatic blood pressures. PATIENT'S NAME: STEVIE PONCE [facility] AGE: 86 Y [address] ROOM: [address] [place] [id number] LOCATION: [facility] ADMIT DATE: 05/05/2017 Consultation DISCHARGE DATE: FAMILY PHYSICIAN: Toni White MD ATTENDING PHYSICIAN: Fredrick Harmon 2. Elevated troponin. I would check an echocardiogram and after that, we will decide whether or not he needs a heart catheterization versus a stress test. 3. Hypertension. We will titrate nitroglycerin to keep his systolic blood pressure less than 160. The assessment and plan, history of present illness, and physical exam are per Dr. Harmon. Further recommendations will be forthcoming as information becomes available. SHA ESCUDERO APRN FOR [facility] HARMON MD TGP/modl /[id number] d: 05/06/172 t: 05/11/17 1011, CONSULTATION REPORT
--- NOTE | ~2017-05-04 | PUL ---
PATIENT'S NAME: STEVIE PONCE [facility] AGE: 86 Y [address] ROOM: [address] [address] LOCATION: GPCU ADMIT DATE: 05/05/2017 Pulmonary DISCHARGE DATE: 05/07/2017 FAMILY PHYSICIAN: Toni White MD ATTENDING PHYSICIAN: Fredrick Diaz NAME OF PROCEDURE: Bedside Pulmonary Function Test DATE OF PROCEDURE: May 06, 2017 TECH: TRACIE Morales REASON FOR EXAM: Pre-surgical evaluation RESULTS: Spirometry demonstrates severe airflow obstruction without significant improvement post bronchodilator. MALCOLM BROWN MD /[id number] dtt: 05/21/17 0948 , Malcolm Brown dtd: 05/11/17 1418
--- NOTE | ~2017-05-04 | DS ---
PATIENT'S NAME: STEVIE PONCE [facility] AGE: 86 Y [address] ROOM: [address] [place], [place] [address] LOCATION: GPCU ADMIT DATE: 05/05/2017 Discharge Summary DISCHARGE DATE: 05/07/2017 FAMILY PHYSICIAN: Toni White MD ATTENDING PHYSICIAN: Fredrikc Diaz REASON FOR ADMISSION: Syncopal episode. PRINCIPAL DIAGNOSIS: Hba-AP-[id number] elevation myocardial infarction. SECONDARY DIAGNOSES: Chronic kidney disease stage 4, baseline creatinine 2.4 to 2.9 as well as history of bladder cancer, history of cerebrovascular accident, type 2 diabetes, essential hypertension, benign prostatic hypertrophy, chronic obstructive pulmonary disease, and chronic diastolic congestive heart failure. PENDING LABS AND TESTS AT THE TIME OF DISCHARGE: None. CONSULTANTS: Hospitalist group as well as Dr. Lott with Nephrology, (Dr. Diaz, Cardiology primary of record). HOSPITAL COURSE: This is a very pleasant 86-year-old male with past medical history detailed to some degree above, who presented following a syncopal episode. He had been riding with his in the car and upon attempting to stand, became dizzy and collapsed. His had assisted him to the ground to avoid any significant trauma. Following arrival to the hospital, the patient said that he felt "okay," however, he was admitted for monitoring following the syncopal episode and troponin was found to be elevated to 0.5. The patient had denied chest pain and was notably significantly hypertensive at the point of hospitalization and did require IV nitroglycerin initially. No evidence was found during stay of recurrent CVA. Syncopal episode was thus attributed to a cardiogenic cause. The patient did undergo carotid ultrasound during stay, which showed minimal stenosis. Also underwent DVT study for bilateral lower extremity, which was negative. Echocardiogram was performed showing an EF of 50%, moderate concentric LVH and grade 1 diastolic dysfunction as well as a moderately dilated left atrium and moderate mitral regurgitation. Left heart catheterization was pursued on May 05 and it showed severe ostial LAD, R1 and proximal RCA disease. It was recommended the patient undergo CABG, however, his pulmonary disease was felt to be prohibitive. Maximal medical therapy was thus sought out. The patient subsequently did well, remained on baseline 2 L of oxygen via nasal cannula without difficulty. Given poor pulmonary function tests as noted above, no CABG was recommended and the patient was discharged home. PATIENT'S NAME: STEVIE PONCE [facility] AGE: 86 Y [address] ROOM: [address] [address] LOCATION: GPCU ADMIT DATE: 05/05/2017 Discharge Summary DISCHARGE DATE: 05/07/2017 FAMILY PHYSICIAN: Toni White MD ATTENDING PHYSICIAN: Fredrick Diaz MEDICATIONS AND PERTINENT CHANGES: Please see med administration record to accompany this discharge summary. CONDITION ON DATE OF DISCHARGE: VITAL SIGNS: Pulse 62, blood pressure 146/73, respirations 17, afebrile, and saturating well on 2 L. Exam as per most recent progress note. DISCHARGE INSTRUCTIONS: The patient will discharge to follow up with Cardiology per their recommendations as well as PCP in one week. Time spent on date of discharge including direct patient care and coordination and discharge activities is 25 minutes. The record will reflect Dr. Diaz is attending of record. MD SUMIT RIVERA/chapincito /[id number] d: 05/23/17 0115 t: 05/23/17 0741, DISCHARGE SUMMARY
[2017-05-04] MEDS ORDERED: PROSCAR5 MG PO (18:19)
[2017-05-04] MEDS ORDERED: SYMBICORT 16010.2 GM INH (18:19)
[2017-05-04] MEDS ORDERED: FLONASE 50 MCG/16 GM NOSE (18:20)
[2017-05-04] MEDS ORDERED: APRESOLINE50 MG PO (18:20)
[2017-05-04] MEDS ORDERED: ZYCLARA1 EACH TOP (18:22)
[2017-05-04] MEDS ORDERED: NOVOLOG FL100 UNIT/1 SUB-Q (18:23)
[2017-05-04] MEDS ORDERED: SPIRIVA HA30 CAP/INH INH (18:25)
[2017-05-04] MEDS ORDERED: FISH OIL 1,0001 EACH PO (18:26)
[2017-05-04] MEDS ORDERED: PRESERVISION A1 EAC2 PO (18:27)
[2017-05-04] MEDS ORDERED: PLAVIX75 MG PO (18:27)
[2017-05-04] MEDS ORDERED: CLOPIDOGREL75 MG PO (18:28)
[2017-05-04] MEDS ORDERED: ARICEPT10 M1 PO (18:29)
[2017-05-04] MEDS ORDERED: GLUCOTROL10 MG PO (18:30)
[2017-05-04] MEDS ORDERED: PROTONIX40 MG PO (18:32)
[2017-05-04] MEDS ORDERED: FLOMAX0.4 MG PO (18:33)
[2017-05-04] MEDS ORDERED: VITAMIN D-32000 UNI1 PO (18:33)
[2017-05-04] MEDS ORDERED: CELEXA40 MG PO (18:34)
[2017-05-04] MEDS ORDERED: PRAVACHOL20 MG PO (18:35)
[2017-05-04] MEDS ORDERED: KLOR-CON 1010 MEQ PO (18:36)
[2017-05-04] MEDS ORDERED: PROVENTIL OR V6.7 GM INH (18:36)
[2017-05-04] MEDS ORDERED: LOPRESSOR50 MG PO (18:37)
[2017-05-04 20:10] LABS: BASOPHIL % 0.4 %; EOSINOPHIL # 0.1 K/uL (0.0-0.5); EOSINOPHIL % 0.9 %; HEMATOCRIT 30.1 % (33.0-50.0); HEMOGLOBIN 9.5 g/dL (11.0-16.0); IMMATURE GRANULOCYTE % 0.2 %; LYMPHOCYTE # 0.7 K/uL (0.8-4.0); LYMPHOCYTE % 12.6 %; MCH 31.9 pg (27.0-34.0); MCHC 31.6 gm/dL (32.0-36.5); MONOCYTE # 0.6 K/uL (0.0-1.0); MONOCYTE % 11.8 %; MPV 10.8 fl (9.4-12.4); NEUTROPHIL # (ANC) 3.9 K/uL (1.4-9.0); NEUTROPHIL % 74.1 %; NRBC % 0 /100WBC (0-0.00); PLATELET COUNT 125 K/uL (150-450); RBC 2.98 M/uL (3.50-5.50); RDW-CV 14.6 % (11.9-14.6); WBC 5.3 K/uL (4.0-11.0)
[2017-05-04 20:21] LABS: INR - (THERAPEUTIC) 1.02 (0.92-1.07); PROTIME 10.7 SECONDS (9.8-11.4); PTT 25 SECONDS (25-32)
--- NOTE | 2017-05-04 20:22 | NUR ---
86 Y/O MALE ADMITTED FOR SYNCOPE THAT OCURED AT HIS HOME TODAY, PT STATES THAT HE DOES NOT REMEMBER ANYTHING FOR A WHILE AND AWOKE IN THE AMBULANCE AND WAS DISORIENTED AT THAT POINT. PT STATES THAT HE HAS VOMITED SEVERAL TIMES SINCE THIS MORNING BUT PRIOR TO ARRIVEING AT [facility]. PT STATES THAT HE FEELS TINGLING DOWN TH RIGH SIDE OF HIS FACE BUT THAT THIS HAS BEEN OCCURING FOR THE PAST MONTH OR TWO OFF & ON. PT ALSO STATS THAT HE HAS FALLEN SEVERAL TIMES OVER THE PAST 2-3 MONTHS. PT ALSO STATES THAT IN THESE PAST FALLS HE FEELS LIGHT HEADED LIKE HE IS GOING TO PASS OUT BUT DOES NOT PASS OUT BUT DOES FALL. PT DOES NOT USE A CAN OR WALKER AT HOME ALLERGIES - HYDROCODONE, NAPROSYN, ZOFRAN = GI UPSET MEDICAL HISTORY - TIA 1996, HTN, HIGH CHOL, DMII, WEARS O2 2L @ NOC, SOB SINCE PARTIAL LUNG LOBECTOMY (BENIGN), ARTHRITIS, BASAL CELL SKIN CANCER ON FACE, SQUAMOUS CELL CACER ON FACE & LIP, BLADDER CANCER WITH CHEMO IN PAST, SPINAL MENINGITIS A CHILD, HX PNEUMONIA, GERD, HEARTBURN, HX KIDNEY STONES, URGENCY, FREQ & NOCTURIA, DEPRESSION, DEMENTIA, FORMER SMOKER X30 YRS @ 3PPD & QUIT IN 1969. BLIND LT EYE, MACULAR DEGENERATION, RT HAND MUNBNESS & TINGLING. FOR SURGICAL HISTORY SEE ADMISSION ASSESMENT PART 1 REPORT GIVEN TO PT PRIMARY CARE NURSE FLORIAN BATISTA ADM EDUCATION COMPLETED WITH PT.
[2017-05-04 20:29] LABS: ANION GAP 10.3 (10.0-19.0); CALCIUM 8.6 mg/dL (8.5-10.5); CREATININE 2.7 mg/dL (0.6-1.3); MAGNESIUM 2.3 mg/dL (1.8-2.6); POTASSIUM 4.3 mMol/L (3.7-5.1); TOTAL BILIRUBIN 0.5 mg/dL (0.0-1.5); TOTAL PROTEIN 6.3 g/dL (6.0-8.4)
[2017-05-04 21:33] LABS: BILIRUBIN URINE NEGATIVE (NEGATIVE); BLOOD URINE NEGATIVE /UL (NEGATIVE); COLOR URINE YELLOW (YELLOW); GLUCOSE URINE NEGATIVE (NEGATIVE); KETONE URINE NEGATIVE (NEGATIVE); LEUKOCYTES URINE NEGATIVE /UL (NEGATIVE); NITRITE URINE NEGATIVE (NEGATIVE); PH URINE 6.5 (4.0-8.0); PROTEIN URINE 100 mg/dL (NEGATIVE); TURBIDITY URINE CLEAR (CLEAR); UROBILINOGEN URINE NORMAL (NORMAL)
[2017-05-04 21:58] LABS: BACTERIA URINE MODERATE (NEGATIVE); MUCUS URINE 2+ (NEGATIVE); RBC URINE NEGATIVE #/HPF (NEGATIVE); WBC URINE NEGATIVE #/HPF (NEGATIVE)
--- NOTE | 2017-05-05 05:18 | NUR ---
A/O. HR 70s. SBP 140-150s. NITRO CURRENTLY AT 10MCG/MIN. NS AT TKO. ELEVATED TN HEPARIN STARTED. CURRENTLY AT 1000ML/HR NEXT PTTHP AT 0930. DENIES CHEST PAIN. DENIES PAIN. ORTHOS DONE AND RECORED IN PROGRESS NOTES. 1A TRANSFERS. VOIDS PER URINAL. NO BM. NPO SINCE MIDNIGHT..
[2017-05-05 07:58] LABS: BASOPHIL # 0.1 K/uL (0.0-0.2); BASOPHIL % 0.7 %; EOSINOPHIL # 0.2 K/uL (0.0-0.5); EOSINOPHIL % 2.7 %; HEMATOCRIT 29.4 % (33.0-50.0); HEMOGLOBIN 9.3 g/dL (11.0-16.0); IMMATURE GRANULOCYTE % 0.3 %; LYMPHOCYTE # 0.6 K/uL (0.8-4.0); LYMPHOCYTE % 8.4 %; MCHC 31.6 gm/dL (32.0-36.5); MONOCYTE # 0.8 K/uL (0.0-1.0); MONOCYTE % 12.3 %; MPV 9.4 fl (9.4-12.4); NEUTROPHIL % 75.6 %; NRBC % 0 /100WBC (0-0.00); PLATELET COUNT 131 K/uL (150-450); RBC 2.91 M/uL (3.50-5.50); RDW-CV 14.6 % (11.9-14.6); WBC 6.7 K/uL (4.0-11.0)
[2017-05-05 08:15] LABS: INR - (THERAPEUTIC) 1.05 (0.92-1.07)
[2017-05-05 08:18] LABS: ANION GAP 11.5 (10.0-19.0); CALCIUM 8.1 mg/dL (8.5-10.5); CREATININE 2.6 mg/dL (0.6-1.3); POTASSIUM 4.5 mMol/L (3.7-5.1); TOTAL BILIRUBIN 0.5 mg/dL (0.0-1.5)
[2017-05-05 08:28] LABS: PTT 46 SECONDS (25-32)
[2017-05-05] MEDS ORDERED: LOPRESSOR50 MG PO (10:19)
[2017-05-05] MEDS ORDERED: HYTRIN UD5 MG PO (10:23)
[2017-05-05 13:11] LABS: ANION GAP 11.7 (10.0-19.0); CALCIUM 8.2 mg/dL (8.5-10.5); CREATININE 2.7 mg/dL (0.6-1.3); POTASSIUM 4.7 mMol/L (3.7-5.1)
--- NOTE | 2017-05-05 15:00 | NUR ---
Introduced self and role of care management to patient. He lives with his in [facility]. He states that he is able to do all his own ADL's. His is available to assist as needed. He plans on returning home on discharge. He denies any needs at this time. Will continue to follow.
--- NOTE | 2017-05-05 16:43 | NUR ---
Significant Event: A/O x 3. 1 assist. VSS on 2 L. ACHS. Cardiac prudent diet. No c/o pain. Voids per urinal. Numbness and tingling in fingers bilat. IV to right wrist. Nitro drip at 5 mcg/hr. Heparin drip at 1100 units/hr. Skin tear protocol to left hand. Right groin cath site, perclose. Dressing c/d/i. Bedrest off at 2130. Follow up: CABG consult
--- NOTE | 2017-05-06 04:37 | NUR ---
A&OX3. HAS NUMBNESS/TINGLING IN R) HAND AND FACE FROM STROKE RESIDUE. [place]. VISION PROBLEMS. CALM AND COOPERATIVE WITH CARES. VSS ON HOME DOSE OF 2L O2. NITRO DRIP RUNNING AT 5MCG/MIN TO KEEP BPS LESS THAN 160. ON HEPARIN DRIP PER ACS PROTOCOL. LATEST PTTHP 45 AT 0100. NEXT DRAW IS 0700. HEPARIN RUNNING AT 1300. R) GROIN SITE CSM WNL. 2+ PULSES. NO OOZING OR HEMATOMA NOTED, SOFT NON-TENDER. CABG CONSULT, POSSIBLE PROCEDURE WEDNESDAY. LATEST TROPONIN 9.06 TRENDING DOWN.
[2017-05-06 07:34] LABS: BASOPHIL % 0.6 %; EOSINOPHIL # 0.1 K/uL (0.0-0.5); EOSINOPHIL % 2.4 %; HEMATOCRIT 28.5 % (33.0-50.0); IMMATURE GRANULOCYTE % 0.4 %; LYMPHOCYTE # 0.7 K/uL (0.8-4.0); LYMPHOCYTE % 12.3 %; MCHC 31.6 gm/dL (32.0-36.5); MCV 101.4 fl (83.0-98.0); MONOCYTE # 0.8 K/uL (0.0-1.0); MONOCYTE % 15.1 %; MPV 10.4 fl (9.4-12.4); NEUTROPHIL # (ANC) 3.7 K/uL (1.4-9.0); NEUTROPHIL % 69.2 %; NRBC % 0 /100WBC (0-0.00); PLATELET COUNT 118 K/uL (150-450); RBC 2.81 M/uL (3.50-5.50); RDW-CV 14.6 % (11.9-14.6); WBC 5.4 K/uL (4.0-11.0)
[2017-05-06 07:41] LABS: ALBUMIN 2.8 gm/dL (3.5-5.0); ANION GAP 11.5 (10.0-19.0); CALCIUM 8.1 mg/dL (8.5-10.5); CREATININE 2.7 mg/dL (0.6-1.3); PHOSPHORUS 4.2 mg/dL (2.5-4.9); POTASSIUM 4.5 mMol/L (3.7-5.1)
--- NOTE | 2017-05-06 10:20 | NUR ---
Received a call from Barbara Duke APRN asking me to speak with patients . She had some questions. I met with patient and his family in his room. I introduced myself and role of care management. We discussed discharge plans. I explained that since his has jsut had a pacemaker generator exchange it would probably be best if we looked at a skilled stay prior to patient going home after CABG. She agreed that she would not be able to care for him by herself. The doctor with Dr White in [facility] and would like to go to the [facility] on discharge. Will ask for PT/OT orders post surgery and make a referral when patient is closer to discharge.
[2017-05-06 11:48] LABS: BICARBONATE 29.6 mmol/L (18.0-23.0); PCO2 50 mmHg (35-45); PO2 57 mmHg (80-90)
--- NOTE | 2017-05-06 16:40 | NUR ---
Significant Event: VSS AND 2L/NC. AFEBRILE. DENIES PAIN. HEPARIN GTT CONTINUES PER PROTOCOL AT 1300 UNITS/HR WITH NEXT PTTHP AT 2030. NITRO GTT CONTINUES AT 5 MCGS WITH SBPS 130S-150S. VOIDS WITH ADEQUATE UOP. SOB WITH ACTIVITY, UP WITH 1A TO THE RECLINER. CABG CANCELLED FOR TOMORROW D/T POOR PULMONARY FUNCTION-SURGERY AND RX ARE AWARE. REPOSITIONED Q2H. Follow up: CONTINUE PLAN OF CARE.
--- NOTE | 2017-05-07 03:33 | NUR ---
VSS ON 2L N/C. DENIES ANY PAIN. HEPARIN GTT REMAINS AT 1300. LAST PTTHP 60. NEXT PTTHP AT 0820. NITRO GTT TITRATED UP TO 10MCG TO KEEP SBP LESS THAN 160. VOIDS W/O DIFFICULTY. AT BEDSIDE. PLEASANT AND COOPERATIVE WITH CARES.
[2017-05-07 03:55] LABS: BASOPHIL % 0.4 %; EOSINOPHIL # 0.2 K/uL (0.0-0.5); EOSINOPHIL % 2.8 %; HEMATOCRIT 27.8 % (33.0-50.0); HEMOGLOBIN 8.8 g/dL (11.0-16.0); IMMATURE GRANULOCYTE % 0.4 %; LYMPHOCYTE # 0.6 K/uL (0.8-4.0); LYMPHOCYTE % 11.2 %; MCH 31.9 pg (27.0-34.0); MCHC 31.7 gm/dL (32.0-36.5); MCV 100.7 fl (83.0-98.0); MONOCYTE # 0.9 K/uL (0.0-1.0); MONOCYTE % 15.7 %; NEUTROPHIL # (ANC) 3.8 K/uL (1.4-9.0); NEUTROPHIL % 69.5 %; NRBC % 0 /100WBC (0-0.00); PLATELET COUNT 123 K/uL (150-450); RBC 2.76 M/uL (3.50-5.50); RDW-CV 14.6 % (11.9-14.6); WBC 5.4 K/uL (4.0-11.0)
[2017-05-07 04:07] LABS: ALBUMIN 2.8 gm/dL (3.5-5.0); ANION GAP 10.9 (10.0-19.0); CALCIUM 8.3 mg/dL (8.5-10.5); CREATININE 2.7 mg/dL (0.6-1.3); PHOSPHORUS 4.4 mg/dL (2.5-4.9); POTASSIUM 3.9 mMol/L (3.7-5.1)
[2017-05-07] MEDS ORDERED: LIPITOR80 MG PO (13:01)
[2017-05-07] MEDS ORDERED: B-COMPLEX PLUS1 EACH PO (13:18)
[2017-05-07] MEDS ORDERED: NITROGLYCERIN0.4 M1 TRANS (13:26)
== END 2017-05-07 15:00 | disposition disaster alternative care site (69) | DRG 280 ==
LOC: GPCU 17:28
PROVIDERS: Family Medicine; Internal Medicine; Internal Medicine Interventional Cardiology; Nurse Practitioner Women's Health; ADMIT Internal Medicine Interventional Cardiology
DX: I21.4 Non-ST elevation (NSTEMI) myocardial infarction (principal); J96.21 Acute and chronic respiratory failure with hypoxia; F03.90 Unspecified dementia, unspecified severity, without behavioral disturbance, psychotic disturbance, mood disturbance, and anxiety; N17.9 Acute kidney failure, unspecified; I13.0 Hypertensive heart and chronic kidney disease with heart failure and stage 1 through stage 4 chronic kidney disease, or unspecified chronic kidney disease; I50.32 Chronic diastolic (congestive) heart failure; N18.4 Chronic kidney disease, stage 4 (severe); C44.310 Basal cell carcinoma of skin of unspecified parts of face; E11.22 Type 2 diabetes mellitus with diabetic chronic kidney disease; Z79.4 Long term (current) use of insulin; E78.5 Hyperlipidemia, unspecified; I25.10 Atherosclerotic heart disease of native coronary artery without angina pectoris; J44.9 Chronic obstructive pulmonary disease, unspecified; N40.0 Benign prostatic hyperplasia without lower urinary tract symptoms; Z85.51 Personal history of malignant neoplasm of bladder; Z86.73 Personal history of transient ischemic attack (TIA), and cerebral infarction without residual deficits; Z87.891 Personal history of nicotine dependence; F32.9 Major depressive disorder, single episode, unspecified
CPT/HCPCS: A9270; C1760; G0378; J1644; J2250; J3010; J7030

== ENCOUNTER → 2017-05-04 | Outpatient (CLI) | payer MEDICARE, BC | END | disposition disaster alternative care site (69) | LOC: GAIR 16:01 | DX: I21.4 Non-ST elevation (NSTEMI) myocardial infarction (principal); E78.5 Hyperlipidemia, unspecified; E11.9 Type 2 diabetes mellitus without complications; I10 Essential (primary) hypertension; I50.9 Heart failure, unspecified; J44.9 Chronic obstructive pulmonary disease, unspecified; R55 Syncope and collapse; Z85.51 Personal history of malignant neoplasm of bladder; Z79.01 Long term (current) use of anticoagulants; Z79.4 Long term (current) use of insulin; Z79.899 Other long term (current) drug therapy; Z88.8 Allergy status to other drugs, medicaments and biological substances | CPT/HCPCS: A0422; A0431; A0436; J2405 ==